=== PATIENT | female | born 1965 | race Caucasian/White ===

== ENCOUNTER → 2019-06-30 08:09 | Outpatient (CLI) | payer MEDICAID, SELFPAY ==
[2019-06-30] VITALS (8 sets, daily range): BP systolic 84–135; BP diastolic 52–87; PULSE 77–89; RESP 16–18; TEMP 36.7–37.2; O2SAT 97–100; BMI 20.1
[2019-06-30] MEDS: Furosemide 20 MG/2 ML VIAL IV (11:47)
[2019-06-30] MEDS: oxyCODONE 5 MG Tablet 10 MG PO (12:11)
== END ==
PROVIDERS: PCP Physician Assistant Medical; Referring Provider Registered Nurse; Visit Provider Registered Nurse
DX: M86.9 Osteomyelitis, unspecified (principal)
CPT/HCPCS: 36415; 36430; 86850; 86900; 86901; 86920; 86922; J7040; P9016; P9040; A4216; J1940